=== PATIENT | female | born 1975 | race Caucasian/White ===

== ENCOUNTER 2020-07-03 12:36 | Emergency (ER) | payer BC, SELFPAY ==
--- NOTE | 2020-07-03 12:42 | PC.NURSE ---
Pt to restroom upon arrival to ed.
[2020-07-03 12:49] VITALS: BP 155/79; PULSE 103; RESP 17; TEMP 37.1; O2SAT 99; BMI 41.8
[2020-07-03 13:07] VITALS: BP 110/76; PULSE 98; O2SAT 97
[2020-07-03 13:08] LABS: Basophils # 0.1 K/mm3 (0-0.2); Basophils % 0.8 % (0.1-2.0); Eosinophils # 0.2 K/mm3 (0.0-0.4); Eosinophils % 2.7 % (0.1-12.0); Hematocrit 29.2 % (37.0-47.0); Hemoglobin 9.4 g/dL (12.2-16.2); Lymphocytes # 1.7 K/mm3 (0.7-4.5); Lymphocytes % 25.1 % (10-50); Mean Corpuscular HGB Conc 32.3 g/dL (31.8-35.4); Mean Corpuscular Hemoglobin 27.4 pg (27.0-31.2); Mean Corpuscular Volume 84.8 fl (81-99); Mean Platelet Volume 8.6 fl (7.4-10.4); Monocytes # 0.3 K/mm3 (0.1-1.0); Monocytes % 4.6 % (1.7-9.3); Neutrophils # 4.4 K/mm3 (1.8-7.8); Neutrophils % 66.9 % (37.0-80.0); Platelet Count 346 K/mm3 (142-424); Red Blood Count 3.44 M/mm3 (4.20-5.40); White Blood Count 6.6 K/mm3 (4.8-10.8)
--- NOTE | 2020-07-03 13:09 | US_ITS ---
PROCEDURE: US TRANSVAGINAL CLINICAL INDICATION: pain, bleeding No now again of the any is ear talk the and the when 1 is a is BP COMPARISON: No exams were available for comparison FINDINGS: UTERUS: 12cm x 7cmx 7cm with a combined endometrial thickness of 23.7mm LEFT OVARY: [id number] with a volume of 18.1ml. RIGHT OVARY: [id number] with a volume of 69.9ml. The endometrium is thickened with heterogeneous echogenicity. There is a 17 mm area of mixed echogenicity along the anterior aspect of the uterus consistent with a fibroid. Along the posterior aspect of the uterus there is a 3 cm area of decreased echogenicity also consistent with a fibroid. There is a right ovarian cyst at 4 x 3 cm cm. An additional hypoechoic areas present along the anterior aspect of the uterus at 4 x 2 cm consistent with a fibroid. No cul-de-sac fluid evident. IMPRESSION: 1. Enlarged uterus with heterogeneous thickened endometrial stripe consistent with blood products. 2. Multiple uterine fibroids 3. Four cm right ovarian cyst Dictated by: Renny Miller MD 07/03/2020 15:50 Renny Miller MD in [place] 07/03/2020 15:50
[2020-07-03 13:15] LABS: Chloride 107 mmol/L (98-107); Potassium 3.8 mmoL/L (3.5-5.1); Sodium 139 mmol/L (136-145)
[2020-07-03 13:17] LABS: Blood Urea Nitrogen 11 mg/dl (7-17)
[2020-07-03 13:18] LABS: Alanine Aminotransferase 21 U/L (12-78); Albumin Level 4.3 g/dl (3.5-5.0); Albumin/Globulin Ratio 1.3 (1.1-1.8); Alkaline Phosphatase 73 U/L (38-126); Anion Gap 9.8 mEq/L (5-15); Aspartate Amino Transferase 30 U/L (14-36); Bilirubin,Total 0.3 mg/dl (0.2-1.3); Carbon Dioxide 26 mmol/L (22.0-30.0); Creatinine Clearance Estimated 68 mL/min (50-200); Estimated Glomerular Filt Rate 90 ml/min (>60); GFR (African American) 109 ML/MIN (>60); Globulin 3.2 g/dL (1.3-3.2); Total Protein,Serum 7.5 g/dl (6.3-8.2)
[2020-07-03 13:19] LABS: Glucose 118 mg/dl (74-100)
--- NOTE | 2020-07-03 13:22 | [facility].EDGENADL ---
ED Disposition Clinical Impression: Anemia, blood loss, Menometrorrhagia, Dysfunctional uterine bleeding Disposition: Home, Self-Care Condition on Discharge: Good Instructions: DI for Vaginal Bleeding Referrals: Margoth Larios APRN [Primary Care Provider] - - Critical Care Critical Care Time: No Attestation: On 07/03/20, the high probability of a clinically significant, sudden or life threatening deterioration of the following system(s) required my full and direct attention, intervention and personal management. The time I documented below is in addition to time spent performing reported procedures but includes the following listed in this critical care notation. Medical Decision Making - Medical Records Medical records reviewed: Yes: I reviewed the patient's medical records. - Andrei Inquiry Pt receiving controlled substance: No Vital Signs: 07/03/20 12:49 07/03/20 13:07 07/03/20 13:54 Temperature 98.8 F Temperature Source Oral Pulse Rate [Right Radial] 103 H 98 H 88 Respiratory Rate 17 Blood Pressure [Right Arm] 155/79 H 110/76 106/71 L Blood Pressure Mean [Right Arm] 104 87 82 Blood Pressure Source [Right Arm] Automatic Cuff Automatic Cuff Blood Pressure Position [Right Arm] Sitting Sitting 02 Sat by Pulse Oximetry 99 97 98 Oxygen Delivery Method Room Air Room Air Room Air - Lab Data Lab Results 07/03/20 12:44: Urine Color Yellow, Urine Appearance Clear, Urine pH 7.5, Ur Specific [place] 1.010, Urine Protein Negative, Urine Glucose (UA) Negative, Urine Ketones Negative, Urine Blood 2+, Urine Nitrate Negative, Urine Bilirubin Negative, Urine Urobilinogen 0.2, Ur Leukocyte Esterase Negative 07/03/20 12:45: WBC 6.6, RBC 3.44 L, Hgb 9.4 L, Hct 29.2 L, MCV 84.8, MCH 27.4, MCHC 32.3, RDW 16.0, Plt Count 346, MPV 8.6, Neut % (Auto) 66.9, Lymph % (Auto) 25.1, Pine % (Auto) 4.6, Eos % (Auto) 2.7, Baso % (Auto) 0.8, Neut # (Auto) 4.4, Lymph # (Auto) 1.7, Pine # (Auto) 0.3, Eos # (Auto) 0.2, Baso # (Auto) 0.1 07/03/20 12:45: Urine HCG, Qual Negative 07/03/20 12:45: Sodium 139, Potassium 3.8, Chloride 107, Carbon Dioxide 26, Anion Gap 9.8, BUN 11, Creatinine 0.70, Estimated Creat Clear 68, Estimated GFR 90, Est GFR ( Amer) 109, Glucose 118 H, Calcium 9.0, Total Bilirubin 0.3, AST 30, ALT 21, Alkaline Phosphatase 73, Total Protein 7.5, Albumin 4.3, Globulin 3.2, Albumin/Globulin Ratio 1.3 Result diagrams: 07/03/20 12:45 07/03/20 12:45 Orders (Tests/Meds): ED MEDICATIONS Discontinued Medications Generic Name Dose Route Start Last Admin Trade Name Freq PRN Reason Stop Dose Admin Sodium Chloride 1,000 mls @ 999 mls/hr 07/03/20 13:15 07/03/20 13:21 Sod Chlor 0.9% 1000ml Bag IV 07/03/20 14:15 999 mls/hr .[id number] NEDRA Administration ORDERS Category Date Time Status US transvaginal Stat Exams 07/03/20 13:09 Taken UA [Urinalysis and Microscopic] Stat Lab 07/03/20 12:44 Results - US Data US Images: Pelvis ED US Reviewed: Yes: I have reviewed the patient's US results, I discussed the US results w/the radiologist Findings Narrative: multiple fibroids with thickened endometrium - Reevaluation(s) Time: 15:01 Reevaluation #1: On reevaluation, patient is feeling better. She is slightly anemic with a hemoglobin of 9.6. Ultrasound findings are consistent with fibroids as well as thickened endometrium. I do believe this is contributing to the patient's current vaginal bleeding. She does have a follow-up appointment with her ORCHESTRA DIRECTOR in 48 hours. Patient is to maintain this appointment. She was given strict return precautions for any change in symptoms. Verbalized understanding. Medical Decision Narrative: This is a 44-year-old female presented to the emergency department with vaginal bleeding. I do believe her symptoms are consistent with menorrhagia. Patient does not have any significant tenderness palpation. Blood pressure stable. Work-up initiated. General Adult
[2020-07-03 13:46] LABS: Urine Pregnancy, HCG Qual. Negative (Negative)
[2020-07-03 13:54] VITALS: BP 106/71; PULSE 88; O2SAT 98
[2020-07-03 14:33] LABS: Microscopic, Urine URINE MICROSCOPIC (MICROSCOPIC)
[2020-07-03 14:35] LABS: Appearance,Urine CLEAR (Clear); Bilirubin,Urine Negative (Negative); Blood, Urine 2+ (Negative); Color,Urine YELLOW (Yellow); Glucose,Urine (UA) Negative (Negative); Ketones,Urine Negative (Negative); Leukocyte Esterase,Urine Negative (Negative); Nitrate,Urine Negative (Negative); PH,Urine 7.5 (5.0-8.5); Protein,Urine Negative (Negative); Urobilinogen,Urine 0.2 EU/dl (0.2)
[2020-07-03 15:04] VITALS: BP 110/69; PULSE 85; RESP 16; TEMP 37.1; O2SAT 98
[2020-07-03 15:19] LABS: Bacteria,Urine Trace /lpf; Squamous Epithelial Cell,Urine Occasional #/hpf (0-5)
== END 2020-07-03 15:06 | disposition home or self-care (01) ==
PROVIDERS: Emergency Provider Emergency Medicine; PCP Nurse Practitioner
DX: N93.8 Other specified abnormal uterine and vaginal bleeding (principal); D64.9 Anemia, unspecified; K21.9 Gastro-esophageal reflux disease without esophagitis; E78.5 Hyperlipidemia, unspecified; I10 Essential (primary) hypertension; F17.210 Nicotine dependence, cigarettes, uncomplicated; Z88.1 Allergy status to other antibiotic agents; Z88.2 Allergy status to sulfonamides
CPT/HCPCS: 76830; 80053; 81001; 81025; 85025; 96365; 99283

== ENCOUNTER 2024-08-23 09:46 | Outpatient (CLI) | payer BC, SELFPAY ==
[2024-08-23 10:04] LABS: Basophils # 0.1 K/mm3 (0-0.2); Eosinophils # 0.1 K/mm3 (0.0-0.4); Eosinophils % 2.7 % (0.1-12.0); Hematocrit 40.3 % (37.0-47.0); Hemoglobin 13.4 g/dL (12.2-16.2); Lymphocytes % 41.9 % (10-50); Mean Corpuscular HGB Conc 33.3 g/dL (31.8-35.4); Mean Corpuscular Hemoglobin 29.5 pg (27.0-31.2); Mean Corpuscular Volume 88.6 fl (81-99); Monocytes # 0.3 K/mm3 (0.1-1.0); Neutrophils # 2.3 K/mm3 (1.8-7.8); Neutrophils % 47.4 % (37.0-80.0); Platelet Count 282 K/mm3 (142-424); Red Blood Count 4.55 M/mm3 (4.20-5.40); Red Cell Distribution Width 12.4 % (11.5-17.5); White Blood Count 4.9 K/mm3 (4.8-10.8)
[2024-08-23 10:38] LABS: Alanine Aminotransferase 34 U/L (12-78); Albumin Level 4.7 g/dl (3.5-5.0); Albumin/Globulin Ratio 1.7 (1.1-1.8); Alkaline Phosphatase 73 U/L (38-126); Anion Gap 16.5 mEq/L (5-15); Aspartate Amino Transferase 37 U/L (14-36); Bilirubin,Total 0.5 mg/dl (0.2-1.3); Blood Urea Nitrogen 16 mg/dl (7-17); Calcium 9.6 mg/dl (8.4-10.2); Carbon Dioxide 24 mmol/L (22.0-30.0); Chloride 105 mmol/L (98-107); Chol/HDL Ratio 6.5 (1-3.5); Cholesterol 259 mg/dl (140-200); Estimated Glomerular Filt Rate 76 ml/min (>60); GFR (African American) 92 ML/MIN (>60); Globulin 2.7 g/dL (1.3-3.2); Glucose 88 mg/dl (74-100); HDL Cholesterol 40 mg/dl (40-60); Lipase 127 U/L (23-300); Potassium 4.5 mmoL/L (3.5-5.1); Sodium 141 mmol/L (136-145); Total Protein,Serum 7.4 g/dl (6.3-8.2); Triglycerides 191 mg/dl (30-150); VLDL Cholesterol 38 mg/dL (0-40)
[2024-08-23 10:49] LABS: Direct LDL Cholesterol 169.86 mg/dL (100-129)
[2024-08-23 11:08] LABS: Thyroid Stimulating Hormone 0.62 uIU/mL (0.465-4.68)
== END 2024-08-23 23:59 | disposition home or self-care (01) ==
LOC: LAB 09:47
PROVIDERS: PCP Family Medicine; Visit Provider Family Medicine
DX: R10.9 Unspecified abdominal pain (principal); R63.5 Abnormal weight gain; E78.5 Hyperlipidemia, unspecified
CPT/HCPCS: 36415; 80053; 80061; 83036; 83690; 84443; 85025

== ENCOUNTER 2024-10-01 13:08 | Outpatient (CLI) | payer BC, SELFPAY ==
--- NOTE | 2024-10-01 13:13 | US_ITS ---
FINAL REPORT TECHNIQUE: Ultrasound images of the thyroid were obtained. CLINICAL HISTORY: THYROMEGALY FINDINGS: The right lobe of the thyroid measures 4.7 x 1.5 x 1.8 cm. It is normal in echogenicity. The left lobe of the thyroid measures 4.3 x 1.3 x 1.9 cm. It is normal in echogenicity. There are a few, 3 mm or less, nodules bilaterally most of which likely represent benign colloid cysts. IMPRESSION: Benign multinodular goiter without evidence of neoplasm. Reviewed, Interpreted and Dictated by Cristiano Salazar MD Transcribed by Jo-Ann Campbell Authenticated and [facility]
== END 2024-10-01 23:59 | disposition home or self-care (01) ==
LOC: RAD 13:09
PROVIDERS: PCP Family Medicine; Visit Provider Family Medicine
DX: E04.9 Nontoxic goiter, unspecified (principal)
CPT/HCPCS: 76536